=== PATIENT | female | born 2000 | race Caucasian/White ===

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

== ENCOUNTER → 2020-07-14 | Outpatient (REF) | payer OTHER | LOC: M LAB REF 16:17 | PROVIDERS: ATTEND Physician Assistant | DX: J02.9 Acute pharyngitis, unspecified (principal) ==

== ENCOUNTER → 2021-11-22 | Outpatient (CLI) | payer OTHER, SELFPAY | LOC: M WHC 14:46 | PROVIDERS: ATTEND Nurse Practitioner Family | DX: N63.11 Unspecified lump in the right breast, upper outer quadrant (principal) ==

== ENCOUNTER → 2022-05-26 | Outpatient (CLI) | payer OTHER | LOC: M WHC 15:30 | PROVIDERS: ATTEND Surgery | DX: N63.10 Unspecified lump in the right breast, unspecified quadrant (principal); R92.8 Other abnormal and inconclusive findings on diagnostic imaging of breast ==